=== PATIENT | female | born 1950 ===

== ENCOUNTER 2024-05-27 06:32 | Day surgery (SDC) | payer OTHER ==
[~2024-05-27 06:32] MED LIST: GLUMETZA500 MG; LOSARTAN-HCTZ1 EAC1 PO; SYNTHROID88 MCG PO; VERELAN PM100 MG
[2024-05-27] MEDS ORDERED: ENALAPRILAT DIHYDRATE 2.5 MG/2 ML VIAL IV ONE (15:15)
[2024-05-27] MEDS ORDERED: ENALAPRILAT DIHYDRATE 1.25 MG/ML VIAL IV ONE (15:17)
[2024-05-27] MEDS ORDERED: hydrALAZINE HCL 20 MG VIAL ONE (16:05)
[2024-05-27 17:54] VITALS: O2SAT 100
[2024-05-28 12:13] VITALS: BP 146/71
== END 2024-05-27 17:05 | disposition home or self-care (01) ==
LOC: CIR.AMB 06:32 → AMB-ERCP 07:30 → CIR.AMB 17:05
PROVIDERS: ATTEND Internal Medicine
DX: K86.2 Cyst of pancreas (principal); K86.3 Pseudocyst of pancreas; Z88.0 Allergy status to penicillin; Z91.041 Radiographic dye allergy status; Z88.6 Allergy status to analgesic agent